=== PATIENT | male | born 1985 | race Caucasian/White ===

== ENCOUNTER → 2017-06-25 | Outpatient (CLI) | payer BC ==
[~2017-06-25] MED LIST: CEP500 PO
== END ==
LOC: LAB 08:59
PROVIDERS: ATTEND Nurse Practitioner Family
DX: Z01.84 Encounter for antibody response examination (principal)
CPT/HCPCS: 36415; 86735

== ENCOUNTER → 2018-02-26 | Outpatient (REF) ==
[2018-02-26 08:15] LABS: LDL CHOLESTEROL 113 mg/dl
== END ==
DX: Z02.9 Encounter for administrative examinations, unspecified (principal)